=== PATIENT | male | born 1960 | race Caucasian/White ===

== ENCOUNTER 2024-03-20 12:32 | Inpatient (IN) | payer MEDICARE ==
--- NOTE | 2024-03-20 12:59 | ED ---
General Adult HPI - General Chief complaint: Weakness Stated complaint: Weakness Time Seen by Provider: 03/20/24 12:35 Source: patient Mode of arrival: ambulatory Limitations: no limitations - History of Present Illness Initial comments: Dictation was produced using [employer] dictation software. please excuse any grammatical, word or spelling errors. Chief Complaint: 64-year-old male presents to the emergency department with acute on chronic weakness History of Present Illness: Patient 64-year-old male he presents with his friend. He lives with his friend. They apparently are not a romantic couple. Patient over the last 1 to 2 months has been having worsening weakness. Today's weakness was so bad that he was unable to get up off the toilet. He was able to sit down but unable to stand up. Denies any black or bloody stools. Has no pain complaints. Patient does not have any family to help take care of him. He takes anticoagulation medications. He does have a history of hypertension however recently his hypertensive medications were discontinued. Says that patient seems a lot more pale. The ROS documented in this emergency department record has been reviewed and confirmed by me. Those systems with pertinent positive or negative responses have been documented in the HPI. All other systems are other negative and/or noncontributory. - Related Data Home Medications Medication Instructions Recorded Confirmed Apixaban [Eliquis] 5 mg PO BID 03/20/24 03/20/24 Atorvastatin [Lipitor] 40 mg PO DAILY 03/20/24 03/20/24 Folic Acid 1 mg PO DAILY 03/20/24 03/20/24 Sotalol [Betapace] 80 mg PO BID 03/20/24 03/20/24 Tamsulosin [Flomax] 0.4 mg PO HS 03/20/24 03/20/24 dilTIAZem HCL [dilTIAZem HCL 24Hr 180 mg PO BID 03/20/24 03/20/24 ER (Xr)] Allergies Allergy/AdvReac Type Severity Reaction Status Date / Time No Known Allergies Allergy Verified 03/20/24 12:37 Review of Systems ROS Statement: Those systems with pertinent positive or pertinent negative responses have been documented in the HPI. ROS Other: All systems not noted in ROS Statement are negative. Past Medical History Past Medical History: Hypertension History of Any Multi-Drug Resistant Organisms: None Reported Past Surgical History: Tonsillectomy Past Psychological History: No Psychological Hx Reported Smoking Status: Never smoker Past Alcohol Use History: Daily Past Drug Use History: None Reported General Exam - General Exam Comments Initial Comments: PHYSICAL EXAM: General Impression: Alert and oriented x3, not in acute distress no pallor HEENT: Normocephalic atraumatic, extra-ocular movements intact, pupils equal and reactive to light bilaterally, mucous membranes dry. Cardiovascular: Heart regular rate and rhythm Chest: Able to complete full sentences, no retractions, no tachypnea Abdomen: abdomen soft, non-tender, non-distended, no organomegaly Musculoskeletal: Pulses present and equal in all extremities, no peripheral edema Motor: no focal deficits noted Neurological: CN II-XII grossly intact, no focal motor or sensory deficits noted Skin: Intact with no visualized rashes Psych: Normal affect and mood Limitations: no limitations Course Vital Signs 03/20/24 03/20/24 03/20/24 12:33 12:43 13:01 Temperature 97.4 F L Pulse Rate 67 58 L 58 L Respiratory 18 18 18 Rate Blood Pressure 76/52 104/70 102/63 O2 Sat by Pulse 98 96 99 Oximetry 03/20/24 14:00 Temperature Pulse Rate 60 Respiratory 16 Rate Blood Pressure 104/66 O2 Sat by Pulse 97 Oximetry EKG Findings - EKG Comments: EKG Findings:: My EKG interpretation: Ventricular rate 60, unable to determine rhythm.. 160, cures 69, QTc 371 artifact significantly reduced his ability interpret. No [place] prolongation, no QTC prolongation, no ST or T-wave changes noted. Overall, this EKG is nonspecific Medical Decision Making - Medical Decision Making Was pt. sent in by a medical professional or institution (, PA, [facility], urgent care, hospital, or long term...) When possible be specific @ -No Did you speak to anyone other than the patient for history (EMS, parent, family, police, friend...)? What history was obtained from this source @ -See above Did you review nursing and triage notes (agree or disagree)? Why? @ -I reviewed and agree with nursing and triage notes Were old charts reviewed (outside hosp., previous admission, EMS record, old EKG, old radiological studies, urgent care reports/EKG's, long term records)? Report findings @ -No old charts were reviewed Differential Diagnosis (chest pain, altered mental status, abdominal pain women, abdominal pain men, vaginal bleeding, musculoskeletal, weakness, fever, dyspnea, syncope, headache, dizziness, GI bleed, back pain, seizure, CVA, palpatations, mental health)? @ -Differential Weakness: Hypoglycemia, shock, sepsis, hyponatremia, anemia, infection, WA, ETOH, adverse medicine reaction, overdose, stroke, this is not meant to be an all-inclusive list. EKG interpreted by me (3pts min.). @ -See above X-rays interpreted by me (1pt min.). @ -Chest x-ray shows no acute processes CT interpreted by me (1pt min.). @ -None done U/S interpreted by me (1pt. min.). @ -None done What testing was considered but not performed or refused? (CT, X-rays, U/S, labs)? Why? @ -None What meds were considered but not given or refused? Why? @ -None Was smoking cessation discussed for >3mins.? @ -No Were there social determinants of health that impacted care today? How? (Homelessness, low income, unemployed, alcoholism, drug addiction, transportati on, low edu. Level, literacy, decrease access to med. care, skilled nursing, rehab)? @ -No Was there de-escalation of care discussed even if they declined (Discuss DNR or withdrawal of care, Hospice)? DNR status @ -No What co-morbidities impacted this encounter? (DM, HTN, Smoking, COPD, CAD, Cancer, CVA, ARF, Chemo, Hep., AIDS, mental health diagnosis, sleep apnea, morbid obesity)? @ -None Was patient admitted / discharged? Hospital course, mention meds given and route, prescriptions, significant lab abnormalities, going to OR and other pertinent info. @ -64-year-old male presents to the emergency department for chief complaint of generalized weakness. Patient is pale at the bedside. His initial blood pressure was 76/52 done in triage. Blood pressure obtained in the ROM #2 is 104/70. Patient's blood pressure had been monitoring for couple hours parable blood pressure measurements. Evaluation obtained. Hemoglobin 11.6. Coag panel is within acceptable limits. Metabolic panel shows hypokalemia of 3.0. Magnesium Aracely of 1.5. Patient given electrolytes. TSH is elevated at 5.2. Still coughs negative. Patient reevaluated at bedside at 4:25 PM he is resting comfortably playing on his tablet in no acute distress. Patient will be admitted for care. Case discussed with hospitalist for admission. Did you discuss the management of the patient with other professionals (professionals i.e. , PA, [facility], lab, RT, psych nurse, secondary social studies teacher, wire bound box machine helper, teacher, facilities officer, registered nurse hh case manager)? Give summary @ -See above Was critical care preformed (if so, how long)? @ -Yes, 33 minutes for hypotension Undiagnosed new problem with uncertain prognosis? @ -No Drug Therapy requiring intensive monitoring for toxicity (Heparin, Nitro, Insulin, Cardizem)? @ -No Were any procedures done? @ -No Diagnosis/symptom? Acute, or Chronic, or Acute on Chronic? Uncomplicated (without systemic symptoms) or Complicated (systemic symptoms)? @ -Generalized weakness Side effects of treatment? @ -No Exacerbation, Progression, or Severe Exacerbation? @ -No Poses a threat to life or bodily function? How? (Chest pain, USA, WA, pneumonia, PE, COPD, DKA, ARF, appy, cholecystitis, CVA, Diverticulitis, Homicidal, Suicidal, threat to staff... and all critical care pts) @ -yes - Lab Data Result diagrams: 03/20/24 13:02 03/20/24 13:02 Lab Results 03/20/24 03/20/24 03/20/24 Range/Units 13:02 13:02 13:02 WBC 11.9 H (3.8-10.6) k/uL RBC 3.44 L (4.30-5.90) m/uL Hgb 11.6 L (13.0-17.5) gm/dL Hct 34.1 L (39.0-53.0) % MCV 99.3 (80.0-100.0) fL MCH 33.9 (25.0-35.0) pg MCHC 34.1 (31.0-37.0) g/dL RDW 13.5 (11.5-15.5) % Plt Count 286 (150-450) k/uL MPV 8.4 Neutrophils % 81 % Lymphocytes % 13 % Monocytes % 4 % Eosinophils % 1 % Basophils % 0 % Neutrophils # 9.6 H (1.3-7.7) k/uL Lymphocytes # 1.6 (1.0-4.8) k/uL Monocytes # 0.5 (0-1.0) k/uL Eosinophils # 0.1 (0-0.7) k/uL Basophils # 0.0 (0-0.2) k/uL PT 15.3 H (10.0-12.5) sec INR 1.5 H (<1.2) APTT 32.3 H (22.0-30.0) sec Sodium (137-145) mmol/L Potassium (3.5-5.1) mmol/L Chloride (98-107) mmol/L Carbon Dioxide (22-30) mmol/L Anion Gap mmol/L BUN (9-20) mg/dL Creatinine (0.66-1.25) mg/dL Est GFR (CKD-EPI)AfAm (>60 ml/min/1.73 sqM) Est GFR (CKD-EPI)NonAf (>60 ml/min/1.73 sqM) Glucose (74-99) mg/dL Plasma Lactic Acid Christo (0.7-2.0) mmol/L Calcium (8.4-10.2) mg/dL Ionized Calcium David (4.5-5.3) mg/dL Magnesium (1.6-2.3) mg/dL Total Bilirubin (0.2-1.3) mg/dL AST (17-59) U/L ALT (4-49) U/L Alkaline Phosphatase (38-126) U/L Troponin I (0.000-0.034) ng/mL Total Protein (6.3-8.2) g/dL Albumin (3.5-5.0) g/dL TSH (0.465-4.680) mIU/L Stool Occult Blood Negative (Negative) Influenza Type A (PCR) (Not Detectd) Influenza Type B (PCR) (Not Detectd) RSV (PCR) (Not Detectd) SARS-CoV-2 (PCR) (Not Detectd) 03/20/24 03/20/24 03/20/24 Range/Units 13:02 13:02 13:02 WBC (3.8-10.6) k/uL RBC (4.30-5.90) m/uL Hgb (13.0-17.5) gm/dL Hct (39.0-53.0) % MCV (80.0-100.0) fL MCH (25.0-35.0) pg MCHC (31.0-37.0) g/dL RDW (11.5-15.5) % Plt Count (150-450) k/uL MPV Neutrophils % % Lymphocytes % % Monocytes % % Eosinophils % % Basophils % % Neutrophils # (1.3-7.7) k/uL Lymphocytes # (1.0-4.8) k/uL Monocytes # (0-1.0) k/uL Eosinophils # (0-0.7) k/uL Basophils # (0-0.2) k/uL PT (10.0-12.5) sec INR (<1.2) APTT (22.0-30.0) sec Sodium 137 (137-145) mmol/L Potassium 3.0 L (3.5-5.1) mmol/L Chloride 104 (98-107) mmol/L Carbon Dioxide 26 (22-30) mmol/L Anion Gap 7 mmol/L BUN 10 (9-20) mg/dL Creatinine 0.95 (0.66-1.25) mg/dL Est GFR (CKD-EPI)AfAm >90 (>60 ml/min/1.73 sqM) Est GFR (CKD-EPI)NonAf 84 (>60 ml/min/1.73 sqM) Glucose 77 (74-99) mg/dL Plasma Lactic Acid Christo 1.4 (0.7-2.0) mmol/L Calcium 7.2 L (8.4-10.2) mg/dL Ionized Calcium David 4.1 L (4.5-5.3) mg/dL Magnesium 1.5 L (1.6-2.3) mg/dL Total Bilirubin 1.2 (0.2-1.3) mg/dL AST 73 H (17-59) U/L ALT 48 (4-49) U/L Alkaline Phosphatase 90 (38-126) U/L Troponin I <0.012 (0.000-0.034) ng/mL Total Protein 4.2 L (6.3-8.2) g/dL Albumin 2.2 L (3.5-5.0) g/dL TSH 5.200 H (0.465-4.680) mIU/L Stool Occult Blood (Negative) Influenza Type A (PCR) (Not Detectd) Influenza Type B (PCR) (Not Detectd) RSV (PCR) (Not Detectd) SARS-CoV-2 (PCR) (Not Detectd) 03/20/24 Range/Units 13:02 WBC (3.8-10.6) k/uL RBC (4.30-5.90) m/uL Hgb (13.0-17.5) gm/dL Hct (39.0-53.0) % MCV (80.0-100.0) fL MCH (25.0-35.0) pg MCHC (31.0-37.0) g/dL RDW (11.5-15.5) % Plt Count (150-450) k/uL MPV Neutrophils % % Lymphocytes % % Monocytes % % Eosinophils % % Basophils % % Neutrophils # (1.3-7.7) k/uL Lymphocytes # (1.0-4.8) k/uL Monocytes # (0-1.0) k/uL Eosinophils # (0-0.7) k/uL Basophils # (0-0.2) k/uL PT (10.0-12.5) sec INR (<1.2) APTT (22.0-30.0) sec Sodium (137-145) mmol/L Potassium (3.5-5.1) mmol/L Chloride (98-107) mmol/L Carbon Dioxide (22-30) mmol/L Anion Gap mmol/L BUN (9-20) mg/dL Creatinine (0.66-1.25) mg/dL Est GFR (CKD-EPI)AfAm (>60 ml/min/1.73 sqM) Est GFR (CKD-EPI)NonAf (>60 ml/min/1.73 sqM) Glucose (74-99) mg/dL Plasma Lactic Acid Christo (0.7-2.0) mmol/L Calcium (8.4-10.2) mg/dL Ionized Calcium David (4.5-5.3) mg/dL Magnesium (1.6-2.3) mg/dL Total Bilirubin (0.2-1.3) mg/dL AST (17-59) U/L ALT (4-49) U/L Alkaline Phosphatase (38-126) U/L Troponin I (0.000-0.034) ng/mL Total Protein (6.3-8.2) g/dL Albumin (3.5-5.0) g/dL TSH (0.465-4.680) mIU/L Stool Occult Blood (Negative) Influenza Type A (PCR) Not Detected (Not Detectd) Influenza Type B (PCR) Not Detected (Not Detectd) RSV (PCR) Not Detected (Not Detectd) SARS-CoV-2 (PCR) Not Detected (Not Detectd) Disposition Clinical Impression: Generalized weakness Disposition: ADMITTED IP TO THIS [facility] Condition: Fair Referrals: Valeriy Mohamud MD [Primary Care Provider] - 1-2 days Decision Time: 16:26
[2024-03-20] MEDS: SODIUM CHLORIDE 0.9% 1,000 ML BAG IV STA (13:09)
[2024-03-20 13:19] LABS: Basophils % (A) 0 %; Eosinophils # (A) 0.1 k/uL (0-0.7); Eosinophils % (A) 1 %; HCT 34.1 % (39.0-53.0); HGB 11.6 gm/dL (13.0-17.5); Lymphocytes # (A) 1.6 k/uL (1.0-4.8); Lymphocytes % (A) 13 %; MCH 33.9 pg (25.0-35.0); MCHC 34.1 g/dL (31.0-37.0); MCV 99.3 fL (80.0-100.0); Mean Platelet Volume 8.4; Monocytes # (A) 0.5 k/uL (0-1.0); Monocytes % (A) 4 %; Neutrophils # (A) 9.6 k/uL (1.3-7.7); Neutrophils % (A) 81 %; Platelet Count 286 k/uL (150-450); RBC 3.44 m/uL (4.30-5.90); RDW 13.5 % (11.5-15.5); WBC 11.9 k/uL (3.8-10.6)
[2024-03-20 13:20] LABS: Ionized Calcium 4.1 mg/dL (4.5-5.3)
--- NOTE | 2024-03-20 13:25 | XR ---
EXAMINATION TYPE: XR chest 2V DATE OF EXAM: 03/20/2024 1:19 PM COMPARISON: None TECHNIQUE: XR chest 2V Frontal and lateral views of the chest. CLINICAL INDICATION:Male, 64 years old with history of weakness; FINDINGS: Lungs/Pleura: Blunting of the left costophrenic angle. No focal consolidation or pneumothorax. Pulmonary vascularity: Unremarkable. Heart/mediastinum: Cardiomediastinal silhouette is unremarkable. Musculoskeletal: No acute osseous pathology. IMPRESSION: Small left pleural effusion.
[2024-03-20 13:30] LABS: ALT 48 U/L (4-49); AST 73 U/L (17-59); African American GFR (CKD) >90 (>60 ml/min/1.73 sqM); Albumin 2.2 g/dL (3.5-5.0); Alkaline Phosphatase 90 U/L (38-126); Anion Gap 7 mmol/L; Blood Urea Nitrogen 10 mg/dL (9-20); Calcium 7.2 mg/dL (8.4-10.2); Carbon Dioxide 26 mmol/L (22-30); Chloride 104 mmol/L (98-107); Glucose 77 mg/dL (74-99); Magnesium 1.5 mg/dL (1.6-2.3); Non-African American GFR(CKD) 84 (>60 ml/min/1.73 sqM); Sodium 137 mmol/L (137-145); Total Bilirubin 1.2 mg/dL (0.2-1.3); Total Protein 4.2 g/dL (6.3-8.2)
[2024-03-20] MEDS: POTASSIUM CHLORIDE ER 20 MEQ TAB.ER PO STA (13:53)
[2024-03-20 13:59] LABS: INR 1.5 (<1.2); Partial Thromboplastin Time 32.3 sec (22.0-30.0); Prothrombin Time 15.3 sec (10.0-12.5)
[2024-03-20] MEDS: SODIUM CHLORIDE 0.9% 2,000 ML IV STA (14:32)
[2024-03-20] MEDS ORDERED: NALOXONE 0.4 MG/ML 1 ML VIAL IV PRN (16:23)
[2024-03-20] MEDS: MAGNESIUM SULFATE-D5W PMX 1 GM in DEXTROSE/WATER 1 100ML.BAG IVPB SCH (16:33)
[2024-03-20] MEDS: SODIUM CHLORIDE 0.9% 1,000 ML IV SCH (16:38)
[2024-03-20] MEDS ORDERED: LORazepam 0.5 MG TAB PO PRN (17:17)
[2024-03-20] MEDS ORDERED: LORazepam 1 MG TAB PO PRN ×3 (17:17)
--- NOTE | 2024-03-20 17:50 | P.HPIM ---
History of Present Illness H&P Date: 03/20/24 History of Present Illness: Patient is a 64-year-old male with a past medical history of atrial fibrillation, hypertension, BPH, chronic alcohol abuse with complaint of gen eralized weakness. He says this weakness started yesterday while he was on the toilet and was unable to get up. He was brought in by his significant other with whom he lives with. He stated that when he goes on longer walks that his calves start to burn. However he states that there is no pain during this incident. He denies any numbness or tingling. Denies any black or bloody stools. Denies any chest pain or palpitations. States that he drinks alcohol daily that usually consist of 2 glasses of vodka and orange juice. He also noted that he has diet is poor and has lost 50 pounds over the last 7 months. Vitals in the ED were temperature 98.9, pulse rate 54, respiratory rate 16, bloo d pressure 90/58, O2 sat 95 on 2 L nasal cannula. Chest x-ray showed small left pleural effusion. EKG showed ectopic atrial rhythm. Labs: WBC 11.9, Hgb 11.6, MCV 99.3, sodium 137, potassium in ED was 3.0 and was given oral potassium to correct. Magnesium was 1.5 was given IV mag sulfate to correct. BUN 10, Cr 0.95, glucose 77. Total protein 4.2, albumin 2.2. AST 73, ALT 48. PT 15.3, INR 1.5, APTT 32.3. TSH 5.2. Troponin negative. Creatine kinase 256. Stool occult blood negative. He is being admitted for further workup on generalized weakness. Pertinent positives and negatives as discussed above, a complete review of systems was performed and all other systems are negative. Physical Exam: General: nontoxic, no distress, appears at stated age Derm: warm, dry, intact Head: atraumatic, normocephalic, symmetric Eyes: EOMI, no lid lag, anicteric sclera Mouth: no lip lesion, mucus membranes moist Cardiovascular: S1 S2 reg, no murmur, rubs, or gallops Lungs: CTA bilateral, no rhonchi, no rales, no accessory muscle use Abdominal: soft, non-tender to palpataion, no appreciable organomegaly Extremities: no gross muscle atrophy, no contractures, edema present in the forearm bilaterally. 3/5 lower extremity strength on bilateral hip flexion Neuro: Alert, Oriented, CNII-XII grossly intact, gait normal Psych: well appearing, appropriate affect Assessment and Plan: 64-year-old male with a past medical history of A-fib, hypertension, BPH, chronic alcohol abuse presents 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 Active: Generalized weakness rhabdomyolysis, less likely. creatine kinase 256. will continue to monitor Chronic alcohol abuse CIKY protocol, monitor for sedation Elevated TSH Free T4 pending Macrocytic anemia, borderline B12 and folate ordered Protein calorie malnutrition Dietary consult ordered Atrial fibrillation Continue Cardizem 180 mg PO twice daily Eliquis 5 mg p.o. twice daily Sotalol 80 mg p.o. twice daily Lipitor 40 mg p.o. daily Keep K > 4 and Mg > 2 Monitor on telemetry Hypokalemia K 3.0 was given 40 mEq p.o. Follow-up BMP Hypomagnesemia Mg 1.5. Was given magnesium sulfate 100 mls @ 100 mls/hr IVP q1hr Follow-up BMP Chronic: BPH Continue Flomax 0.4 mg PO at bedtime Hypertension Hold hypertensive meds due to low blood pressure reading F: NS 75 cc/hr E: Replete as needed N: Heart healthy diet. Diet nutrition consult A: Unable to ambulate. PT/OT consulted. DVT ppx: Eliquis Code status: Full Anticipated discharge place: Pending clinical course Anticipated discharge time: Pending clinical course I have seen and evaluated the patient today. Discussed with the resident and agree with the residents subjective and objective as documented in the shae berry's note. The assessment and plan was discussed and outlined as below. Patient reports generalized weakness progressively getting worse over the past 2 days. Now unable to stand up without assistance. Lives with his "lady friend". Reports significant amount of weight loss associated with poor appetite. Drinks 2 glasses of vodka daily. Non smoker. Brother and sister of thyroid and breast CA. Generalized weakness: PT and OT consulted. Obtain B12 and Folate. Fall precautions. Severe protein calorie malnutrition: Dietitian consult. Add ensure TID to meals. Alcohol abuse: CIWA protocol with Ativan PO PRN. Elevated TSH: Obtain Ft4. Hypokalemia: Replace and re-check. Hypomagnesemia: Replace and re-check. Leukocytosis: Unknown etiology. Mildly elevated. Repeat CBC tomorrow. Normocytic anemia: Advised of routine CA screening especially C-scope which patient declines. HypoCa: Pseudo when factoring in albumin of 2.2. Transaminitis likely due to EtOH abuse. Supratherapeutic INR: Obtain Liver US. Eliquis for DVT prophylaxis. FULL CODE. Past Medical History Past Medical History: Hypertension History of Any Multi-Drug Resistant Organisms: None Reported Past Surgical History: Tonsillectomy Past Psychological History: No Psychological Hx Reported Smoking Status: Never smoker Past Alcohol Use History: Daily Past Drug Use History: None Reported Medications and Allergies Home Medications Medication Instructions Recorded Confirmed Type Apixaban [Eliquis] 5 mg PO BID 03/20/24 03/20/24 History Atorvastatin [Lipitor] 40 mg PO DAILY 03/20/24 03/20/24 History Folic Acid 1 mg PO DAILY 03/20/24 03/20/24 History Sotalol [Betapace] 80 mg PO BID 03/20/24 03/20/24 History Tamsulosin [Flomax] 0.4 mg PO HS 03/20/24 03/20/24 History dilTIAZem HCL [dilTIAZem HCL 24Hr 180 mg PO BID 03/20/24 03/20/24 History ER (Xr)] Allergies Allergy/AdvReac Type Severity Reaction Status Date / Time No Known Allergies Allergy Verified 03/20/24 12:37 Physical Exam Vitals: Vital Signs Temp Pulse Resp BP Pulse Ox 03/20/24 14:00 60 16 104/66 97 03/20/24 13:01 58 L 18 102/63 99 03/20/24 12:43 58 L 18 104/70 96 03/20/24 12:33 97.4 F L 67 18 76/52 98 Intake and Output 03/20/24 03/20/24 03/20/24 06:59 14:59 22:59 Other: Weight 60.781 kg Results CBC & Chem 7: 03/20/24 13:02 03/20/24 13:02 Labs: Abnormal Lab Results - Last 24 Hours (Table) 03/20/24 03/20/24 03/20/24 Range/Units 13:02 13:02 13:02 WBC 11.9 H (3.8-10.6) k/uL RBC 3.44 L (4.30-5.90) m/uL Hgb 11.6 L (13.0-17.5) gm/dL Hct 34.1 L (39.0-53.0) % Neutrophils # 9.6 H (1.3-7.7) k/uL PT 15.3 H (10.0-12.5) sec INR 1.5 H (<1.2) APTT 32.3 H (22.0-30.0) sec Potassium 3.0 L (3.5-5.1) mmol/L Calcium 7.2 L (8.4-10.2) mg/dL Ionized Calcium David 4.1 L (4.5-5.3) mg/dL Magnesium 1.5 L (1.6-2.3) mg/dL AST 73 H (17-59) U/L Total Protein 4.2 L (6.3-8.2) g/dL Albumin 2.2 L (3.5-5.0) g/dL TSH 5.200 H (0.465-4.680) mIU/L
[2024-03-20 17:59] LABS: T4, Free (Free Thyroxine) 2.16 ng/dL (0.78-2.19)
[2024-03-20] MEDS: SOTALOL 80 MG TAB PO SCH (20:12)
[2024-03-20] MEDS: TAMSULOSIN 0.4 MG CAP.ER.24H PO SCH (20:12)
[2024-03-20] MEDS: DILTIAZEM CD 180 MG CAP.ER.24H PO SCH (20:12)
[2024-03-20] MEDS: APIXABAN 5 MG TAB PO SCH (20:13)
[2024-03-20] MEDS ORDERED: APIXABAN 5 MG TAB PO SCH (21:00)
[2024-03-21 03:09] LABS: Amorphous Sediment,Urine Rare /hpf; Appearance,Urine Clear (Clear); Bacteria,Urine Rare /hpf; Bilirubin,Urine Negative (Negative); Blood,Urine Negative (Negative); Color,Urine Yellow; Glucose,Urine (UA) Negative (Negative); Hyaline Casts,Urine 158 /lpf (0-2); Ketones,Urine Trace (Negative); Leukocyte Esterase,Urine Negative (Negative); Mucus,Urine Rare /hpf; Nitrite,Urine Negative (Negative); PH, Urine 5.5 (5.0-8.0); Protein,Urine Trace (Negative); Specific Gravity,Urine 1.013 (1.001-1.035); Urobilinogen,Urine <2.0 mg/dL (<2.0); WBC,Urine 38 /hpf (0-5)
--- NOTE | 2024-03-21 08:03 | US ---
EXAMINATION TYPE: US liver DATE OF EXAM: 03/20/2024 COMPARISON: NONE CLINICAL INDICATION: Male, 64 years old with history of transaminitis; transaminitis TECHNIQUE: Multiple sonographic images of the right upper quadrant are obtained. Limited due to body habitus, exam done intercostally FINDINGS: EXAM MEASUREMENTS: Liver Length: 11.8 cm Gallbladder Wall: 0.2 cm CBD: 0.7 cm Right Kidney: 8.4 x 4.8 x 5.4 cm CLUB FORMER NOTES: Pancreas: parts seen appear wnl Liver: heterogeneous Gallbladder: wnl Evidence for sonographic Quezada's sign: No CBD: wnl Right Kidney: wnl IMPRESSION: Probable underlying hepatic steatosis.
[2024-03-21] MEDS: ATORVASTATIN 40 MG TAB PO SCH (08:05)
[2024-03-21] MEDS: THIAMINE 100 MG TAB PO SCH (08:05)
[2024-03-21] MEDS: FOLIC ACID 1 MG TAB PO SCH (08:05)
[2024-03-21] MEDS: MULTIVITAMINS, THERA 1 EACH TAB PO SCH (08:05)
[2024-03-21 08:24] LABS: Basophils # (A) 0.02 X 10*3/uL (0.00-0.10); Basophils % (A) 0.2 %; Eosinophils # (A) 0.02 X 10*3/uL (0.04-0.35); Eosinophils % (A) 0.2 %; HCT 30.8 % (39.6-50.0); HGB 10.6 g/dL (13.0-17.0); Lymphocytes # (A) 1.21 X 10*3/uL (0.90-5.00); MCHC 34.4 g/dL (32.0-37.0); MCV 98.7 FL (80.0-97.0); Monocytes # (A) 0.55 X 10*3/uL (0.20-1.00); Monocytes % (A) 5.9 %; NRBC Per 100 WBC 0 X 10*3/uL (0.00-0.01); Neutrophils # (A) 7.47 X 10*3/uL (1.80-7.70); Neutrophils % (A) 80.3 %; Platelet Count 217 X 10*3/uL (140-440); RBC 3.12 X 10*6/uL (4.40-5.60); RDW 13.6 % (11.5-14.5); WBC 9.31 X 10*3/uL (4.50-10.00)
[2024-03-21 08:42] LABS: ALT 41 U/L (10-49); AST 52 U/L (14-35); Albumin 2.1 g/dL (3.8-4.9); Albumin/Globulin Ratio 1.62 Ratio (1.60-3.17); Alkaline Phosphatase 81 U/L (41-126); Blood Urea Nitrogen 11.3 mg/dL (9.0-27.0); Calcium 6.9 mg/dL (8.7-10.3); Carbon Dioxide 25.1 mmol/L (21.6-31.8); Chloride 104 mmol/L (96-109); Globulin 1.3 g/dL (1.6-3.3); Glucose 78 mg/dL (70-110); Magnesium 1.9 mg/dL (1.5-2.4); Potassium 3.3 mmol/L (3.5-5.5); Sodium 141 mmol/L (135-145); Total Bilirubin 0.6 mg/dL (0.3-1.2); Total Protein 3.4 g/dL (6.2-8.2)
[2024-03-21] MEDS: POTASSIUM CHLORIDE ER 20 MEQ TAB.ER PO STA (09:38)
[2024-03-21 10:40] VITALS: BMI 19.2
--- NOTE | 2024-03-21 11:13 | P.PN ---
Subjective Progress Note Date: 03/21/24 Hospital course Patient is a 64-year-old male with a past medical history of atrial fibrillation, hypertension, BPH, chronic alcohol abuse with complaint of generalized weakness. He says this weakness started yesterday while he was on the toilet and was unable to get up. He was brought in by his significant other with whom he lives with. He stated that when he goes on longer walks that his calves start to burn. However he states that there is no pain during this incident. He denies any numbness or tingling. Denies any black or bloody stools. Denies any chest pain or palpitations. States that he drinks alcohol daily that usually consist of 2 glasses of vodka and orange juice. He also noted that he has diet is poor and has lost 50 pounds over the last 7 months. Vitals in the ED were temperature 98.9, pulse rate 54, respiratory rate 16, blood pressure 90/58, O2 sat 95 on 2 L nasal cannula. Chest x-ray showed small left pleural effusion. EKG showed ectopic atrial rhythm. Labs: WBC 11.9, Hgb 11.6, MCV 99.3, sodium 137, potassium in ED was 3.0 and was given oral potassium to correct. Magnesium was 1.5 was given IV mag sulfate to correct. BUN 10, Cr 0.95, glucose 77. Total protein 4.2, albumin 2.2. AST 73, ALT 48. PT 15.3, INR 1.5, APTT 32.3. TSH 5.2. Troponin negative. Creatine kinase 256. Stool occult blood negative. He is being admitted for further workup on generalized weakness. Subjective: 03/21/2024: Patient seen and examined at bedside. Patient stated he had 5 bowel movements last night consisted of diarrhea. He stated his weakness has improved. Liver ultrasound showed probable hepatic steatosis. Pertinent positives and negatives as discussed above, a complete review of systems was performed and all other systems are negative. Vitals: Signs Reviewed Physical Exam: General: nontoxic, no distress, appears at stated age Derm: warm, dry, intact Head: atraumatic, normocephalic, symmetric Eyes: EOMI, no lid lag, anicteric sclera Mouth: no lip lesion, mucus membranes moist Cardiovascular: S1 S2 reg, no murmur, rubs, or gallops Lungs: CTA bilateral, no rhonchi, no rales, no accessory muscle use Abdominal: soft, non-tender to palpataion, no appreciable organomegaly Extremities: no gross muscle atrophy, no edema, no contractures, 3/5 lower extremity strength on bilateral hip flexion Neuro: Alert, Oriented, CNII-XII grossly intact, gait normal Psych: well appearing, appropriate affect Data Received Today: Pertinent Labs: WBC 9.31, Hgb 10.6, MCV 98.7, potassium 3.352 total protein 3.4, albumin 2.1, globulin 1.3, UA negative Imaging: Liver ultrasound showed probable hepatic steatosis Assessment and Plan: 64-year-old male with a past medical history of A-fib, 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 Active: Generalized weakness rhabdomyolysis, less likely. creatine kinase 256. will continue to monitor Fall precautions Will be seen by PT today Chronic alcohol abuse Transaminitis [facility] protocol, monitor for sedation Transaminitis likely due to EtOH abuse Elevated TSH Free T4 2.16 Normocytic anemia B12 3214, folate 40 Protein calorie malnutrition Seen by dietitian this morning Ensure 3 times daily with meals 5 episodes of diarrhea last night, C. difficile ordered. Atrial fibrillation Continue Cardizem 180 mg PO twice daily Eliquis 5 mg p.o. twice daily Sotalol 80 mg p.o. twice daily Lipitor 40 mg p.o. daily Keep K > 4 and Mg > 2 Monitor on telemetry Hypokalemia K 3.3 was given 40 mEq p.o. Follow-up BMP Supratherapeutic INR Liver ultrasound showed possible hepatic steatosis Chronic: BPH Continue Flomax 0.4 mg PO at bedtime Hypertension Hold hypertensive meds due to low blood pressure reading Resolved: Hypomagnesemia Follow-up BMP F: NS 75 cc/hr E: Replete as needed N: Heart healthy diet. Diet nutrition consult A: Unable to ambulate, fall precautions. PT/OT consulted. Will be seen later today. DVT ppx: Eliquis Code status: Full Anticipated discharge place: Pending clinical course Anticipated discharge time: Pending clinical course I have seen and evaluated the patient today. Discussed with the resident and agree with the residents subjective and objective as documented in the resident's note. The assessment and plan was discussed and outlined as below. Patient reports no complaints today. PT and OT recommends SNF. Case management aware. Generalized weakness: PT and OT consulted. Fall precautions. Case management on board. Severe protein calorie malnutrition: Dietitian consult. Add ensure TID to meals. Alcohol abuse: CIWA protocol with Ativan PO PRN. Subclinical hypothyroidism: Repeat TSH/FT4 in 6 weeks. Hypokalemia: Replace and re-check. Normocytic anemia: Advised of routine CA screening especially C-scope which patient declines. HypoCa: Pseudo when factoring in albumin of 2.2. Transaminitis likely due to EtOH abuse. Supratherapeutic INR: Obtain Liver US. Resolved: HypoMag, Leukocytosis Eliquis for DVT prophylaxis. FULL CODE. Objective - Vital Signs Vital signs: Vital Signs Temp 97.5 F L 03/21/24 07:24 Pulse 57 L 03/21/24 07:24 Resp 18 03/21/24 07:24 BP 100/68 03/21/24 07:24 Pulse Ox 92 L 03/21/24 07:24 FiO2 Intake & Output 03/20/24 03/21/24 03/21/24 18:59 06:59 18:59 Output Total 150 Balance -150 Weight 60.781 kg 60.781 kg Output: Urine 150 Other: # Voids 1 # Bowel Movements 2 - Labs CBC & Chem 7: 03/21/24 06:03 03/21/24 06:01 Labs: Abnormal Lab Results - Last 24 Hours (Table) 03/20/24 03/20/24 03/20/24 Range/Units 13:02 13:02 13:02 WBC 11.9 H (3.8-10.6) k/uL RBC 3.44 L (4.30-5.90) m/uL Hgb 11.6 L (13.0-17.5) gm/dL Hct 34.1 L (39.0-53.0) % MCV (80.0-97.0) FL MCH (27.0-32.0) pg Neutrophils # 9.6 H (1.3-7.7) k/uL Eosinophils # (0.04-0.35) X 10*3/uL PT 15.3 H (10.0-12.5) sec INR 1.5 H (<1.2) APTT 32.3 H (22.0-30.0) sec Potassium 3.0 L (3.5-5.1) mmol/L BUN/Creatinine Ratio (12.00-20.00) Ratio Calcium 7.2 L (8.4-10.2) mg/dL Ionized Calcium David 4.1 L (4.5-5.3) mg/dL Magnesium 1.5 L (1.6-2.3) mg/dL AST 73 H (17-59) U/L Creatine Kinase (55-170) U/L Total Protein 4.2 L (6.3-8.2) g/dL Albumin 2.2 L (3.5-5.0) g/dL Globulin (1.6-3.3) g/dL Vitamin B12 (200.0-944.0) pg/mL Folate (4.40-31.00) ng/mL TSH 5.200 H (0.465-4.680) mIU/L Urine Protein (Negative) Urine Ketones (Negative) Urine WBC (0-5) /hpf Amorphous Sediment (None) /hpf Urine Bacteria (None) /hpf Hyaline Casts (0-2) /lpf Urine Mucus (None) /hpf 03/20/24 03/20/24 03/21/24 Range/Units 13:10 13:10 01:20 WBC (3.8-10.6) k/uL RBC (4.30-5.90) m/uL Hgb (13.0-17.5) gm/dL Hct (39.0-53.0) % MCV (80.0-97.0) FL MCH (27.0-32.0) pg Neutrophils # (1.3-7.7) k/uL Eosinophils # (0.04-0.35) X 10*3/uL PT (10.0-12.5) sec INR (<1.2) APTT (22.0-30.0) sec Potassium (3.5-5.1) mmol/L BUN/Creatinine Ratio (12.00-20.00) Ratio Calcium (8.4-10.2) mg/dL Ionized Calcium David (4.5-5.3) mg/dL Magnesium (1.6-2.3) mg/dL AST (17-59) U/L Creatine Kinase 256 H (55-170) U/L Total Protein (6.3-8.2) g/dL Albumin (3.5-5.0) g/dL Globulin (1.6-3.3) g/dL Vitamin B12 3214.0 H (200.0-944.0) pg/mL Folate 40.00 H (4.40-31.00) ng/mL TSH (0.465-4.680) mIU/L Urine Protein Trace H (Negative) Urine Ketones Trace H (Negative) Urine WBC 38 H (0-5) /hpf Amorphous Sediment Rare H (None) /hpf Urine Bacteria Rare H (None) /hpf Hyaline Casts 158 H (0-2) /lpf Urine Mucus Rare H (None) /hpf 03/21/24 03/21/24 Range/Units 06:01 06:03 WBC (3.8-10.6) k/uL RBC 3.12 L (4.30-5.90) m/uL Hgb 10.6 L (13.0-17.5) gm/dL Hct 30.8 L (39.0-53.0) % MCV 98.7 H (80.0-97.0) FL MCH 34.0 H (27.0-32.0) pg Neutrophils # (1.3-7.7) k/uL Eosinophils # 0.02 L (0.04-0.35) X 10*3/uL PT (10.0-12.5) sec INR (<1.2) APTT (22.0-30.0) sec Potassium 3.3 L (3.5-5.1) mmol/L BUN/Creatinine Ratio 11.30 L (12.00-20.00) Ratio Calcium 6.9 L (8.4-10.2) mg/dL Ionized Calcium David (4.5-5.3) mg/dL Magnesium (1.6-2.3) mg/dL AST 52 H (17-59) U/L Creatine Kinase (55-170) U/L Total Protein 3.4 L (6.3-8.2) g/dL Albumin 2.1 L (3.5-5.0) g/dL Globulin 1.3 L (1.6-3.3) g/dL Vitamin B12 (200.0-944.0) pg/mL Folate (4.40-31.00) ng/mL TSH (0.465-4.680) mIU/L Urine Protein (Negative) Urine Ketones (Negative) Urine WBC (0-5) /hpf Amorphous Sediment (None) /hpf Urine Bacteria (None) /hpf Hyaline Casts (0-2) /lpf Urine Mucus (None) /hpf
[2024-03-22] MEDS ORDERED: ZINC OXIDE PASTE (Z-GUARD) 1 APPLIC TOPICAL PRN (05:18)
[2024-03-22 07:55] LABS: Basophils % (A) 0 %; Eosinophils % (A) 0 %; HGB 11.2 gm/dL (13.0-17.5); Lymphocytes # (A) 1.2 k/uL (1.0-4.8); Lymphocytes % (A) 19 %; MCV 103.2 fL (80.0-100.0); Macrocytosis Slight; Mean Platelet Volume 8.4; Monocytes # (A) 0.4 k/uL (0-1.0); Monocytes % (A) 6 %; Neutrophils # (A) 4.6 k/uL (1.3-7.7); Neutrophils % (A) 73 %; Platelet Count 243 k/uL (150-450); RBC 3.29 m/uL (4.30-5.90); WBC 6.3 k/uL (3.8-10.6)
[2024-03-22 08:06] LABS: African American GFR (CKD) >90 (>60 ml/min/1.73 sqM); Anion Gap 5 mmol/L; Blood Urea Nitrogen 14 mg/dL (9-20); Calcium 7.1 mg/dL (8.4-10.2); Carbon Dioxide 23 mmol/L (22-30); Chloride 109 mmol/L (98-107); Glucose 78 mg/dL (74-99); Non-African American GFR(CKD) >90 (>60 ml/min/1.73 sqM); Potassium 3.4 mmol/L (3.5-5.1); Sodium 137 mmol/L (137-145)
[2024-03-22] MEDS: POTASSIUM CHLORIDE ER 20 MEQ TAB.ER PO STA (09:07)
--- NOTE | 2024-03-22 11:03 | P.PN ---
Subjective Progress Note Date: 03/22/24 Hospital course Patient is a 64-year-old male with a past medical history of atrial fibrillation, hypertension, BPH, chronic alcohol abuse with complaint of generalized weakness. He says this weakness started yesterday while he was on the toilet and was unable to get up. He was brought in by his significant other with whom he lives with. He stated that when he goes on longer walks that his calves start to burn. However he states that there is no pain during this incident. He denies any numbness or tingling. Denies any black or bloody stools. Denies any chest pain or palpitations. States that he drinks alcohol daily that usually consist of 2 glasses of vodka and orange juice. He also noted that he has diet is poor and has lost 50 pounds over the last 7 months. Vitals in the ED were temperature 98.9, pulse rate 54, respiratory rate 16, blood pressure 90/58, O2 sat 95 on 2 L nasal cannula. Chest x-ray showed small left pleural effusion. EKG showed ectopic atrial rhythm. Labs: WBC 11.9, Hgb 11.6, MCV 99.3, sodium 137, potassium in ED was 3.0 and was given oral potassium to correct. Magnesium was 1.5 was given IV mag sulfate to correct. BUN 10, Cr 0.95, glucose 77. Total protein 4.2, albumin 2.2. AST 73, ALT 48. PT 15.3, INR 1.5, APTT 32.3. TSH 5.2. Troponin negative. Creatine kinase 256. Stool occult blood negative. He is being admitted for further workup on generalized weakness. Subjective: 03/21/2024: Patient seen and examined at bedside. Patient stated he had 5 bowel movements last night consisted of diarrhea. He stated his weakness has improved. Liver ultrasound showed probable hepatic steatosis. 03/22/2024: Patient seen and examined at bedside. No acute events overnight. Pending authorization at subacute rehab. Pertinent positives and negatives as discussed above, a complete review of systems was performed and all other systems are negative. Vitals: Signs Reviewed Physical Exam: General: nontoxic, no distress, appears at stated age Derm: warm, dry, intact Head: atraumatic, normocephalic, symmetric Eyes: EOMI, no lid lag, anicteric sclera Mouth: no lip lesion, mucus membranes moist Cardiovascular: S1 S2 reg, no murmur, rubs, or gallops Lungs: CTA bilateral, no rhonchi, no rales, no accessory muscle use Abdominal: soft, non-tender to palpataion, no appreciable organomegaly Extremities: no gross muscle atrophy, no edema, no contractures, 3/5 lower extremity strength on bilateral hip flexion Neuro: Alert, Oriented, CNII-XII grossly intact, gait normal Psych: well appearing, appropriate affect Data Received Today: Pertinent Labs: WBC 6.3, Hgb 11.2, potassium 3.4 Imaging: No new imaging Assessment and Plan: 64-year-old male with a past medical history of A-fib, hypertension, BPH, chronic alcohol abuse presents 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 Active: Generalized weakness rhabdomyolysis, less likely. creatine kinase 256. will continue to monitor Fall precautions Will be seen by PT today Chronic alcohol abuse Transaminitis [facility] protocol, monitor for sedation Transaminitis likely due to EtOH abuse Elevated TSH Free T4 2.16 Normocytic anemia B12 3214, folate 40 Protein calorie malnutrition Seen by dietitian this morning Ensure 3 times daily with meals 5 episodes of diarrhea last night, C. difficile ordered. Atrial fibrillation Continue Cardizem 180 mg PO twice daily Eliquis 5 mg p.o. twice daily Sotalol 80 mg p.o. twice daily Lipitor 40 mg p.o. daily Keep K > 4 and Mg > 2 Monitor on telemetry Hypokalemia K 3.4 was given 20 mEq p.o. Follow-up BMP Supratherapeutic INR Liver ultrasound showed possible hepatic steatosis Chronic: BPH Continue Flomax 0.4 mg PO at bedtime Hypertension Hold hypertensive meds due to low blood pressure reading Resolved: Hypomagnesemia Follow-up BMP F: NS 75 cc/hr E: Replete as needed N: Heart healthy diet. Diet nutrition consult A: Unable to ambulate, fall precautions. PT/OT consulted. Will be seen later today. DVT ppx: Eliquis Code status: Full Anticipated discharge place: Pending clinical course Anticipated discharge time: Pending clinical course I have seen and evaluated the patient today. Discussed with the resident and agree with the residents subjective and objective as documented in the resident's note. The assessment and plan was discussed and outlined as below. Patient reports no complaints today. PT and OT recommends SNF. Case management aware. Generalized weakness: PT and OT consulted. Fall precautions. Case management on board. Severe protein calorie malnutrition: Dietitian consult. Add ensure TID to meals. Alcohol abuse: CIWA protocol with Ativan PO PRN. Subclinical hypothyroidism: Repeat TSH/FT4 in 6 weeks. Hypokalemia: Replace and re-check. Normocytic anemia: Advised of routine CA screening especially C-scope which patient declines. HypoCa: Pseudo when factoring in albumin of 2.2. Transaminitis likely due to EtOH abuse. Supratherapeutic INR: Obtain Liver US. Resolved: HypoMag, Leukocytosis Eliquis for DVT prophylaxis. FULL CODE. Objective - Vital Signs Vital signs: Vital Signs Temp 97.6 F 03/22/24 07:23 Pulse 93 03/22/24 07:23 Resp 16 03/22/24 07:23 BP 113/80 03/22/24 07:23 Pulse Ox 96 03/22/24 07:23 FiO2 Intake & Output 03/21/24 03/22/24 03/22/24 18:59 06:59 18:59 Weight 60.781 kg Other: # Voids 2 2 # Bowel Movements 3 - Labs CBC & Chem 7: 03/22/24 07:04 03/22/24 07:04 Labs: Abnormal Lab Results - Last 24 Hours (Table) 03/22/24 03/22/24 Range/Units 07:04 07:04 RBC 3.29 L (4.30-5.90) m/uL Hgb 11.2 L (13.0-17.5) gm/dL Hct 34.0 L (39.0-53.0) % MCV 103.2 H (80.0-100.0) fL Potassium 3.4 L (3.5-5.1) mmol/L Chloride 109 H (98-107) mmol/L Calcium 7.1 L (8.4-10.2) mg/dL
--- NOTE | 2024-03-23 08:37 | US ---
EXAMINATION TYPE: US venous doppler duplex UE RT DATE OF EXAM: 03/23/2024 COMPARISON: NONE CLINICAL INDICATION: Male, 64 years old with history of edema; right arm edema SIDE PERFORMED: Right Deep venous system of the right upper extremity is patent and compressible with augmentable flow and normal waveforms. IMPRESSION: No evidence of right upper extremity DVT.
[2024-03-23 10:07] LABS: HCT 29.2 % (39.6-50.0); HGB 9.7 g/dL (13.0-17.0); MCH 33.1 pg (27.0-32.0); MCHC 33.2 g/dL (32.0-37.0); MCV 99.7 FL (80.0-97.0); Mean Platelet Volume 10.7 FL (9.5-12.2); NRBC Per 100 WBC 0 X 10*3/uL (0.00-0.01); Platelet Count 211 X 10*3/uL (140-440); RBC 2.93 X 10*6/uL (4.40-5.60); RDW 13.8 % (11.5-14.5); WBC 7.58 X 10*3/uL (4.50-10.00)
[2024-03-23 10:37] LABS: BUN/Creat Ratio 15.88 Ratio (12.00-20.00); Blood Urea Nitrogen 12.7 mg/dL (9.0-27.0); Calcium 6.9 mg/dL (8.7-10.3); Carbon Dioxide 24.1 mmol/L (21.6-31.8); Chloride 110 mmol/L (96-109); Glucose 87 mg/dL (70-110); Magnesium 1.7 mg/dL (1.5-2.4); Potassium 3.6 mmol/L (3.5-5.5); Sodium 141 mmol/L (135-145)
--- NOTE | 2024-03-23 13:00 | P.PN ---
Subjective Progress Note Date: 03/23/24 64 year old M with PMH of AFib, HTN, BPH, chronic alcohol abuse presents to the ED for weakness and inability to do his ADL and IADLs. In the ED he underwent extensive evaluation. BP 76.52, HR 67, T 97.4F, RR 18, 98% on RA. CBC, Coag panel, CMP significant for WBC 11.9, RBC 3.44, Hg 11.6, Hct 34.1, PT 15.3, INR 1.5, APTT 32.3, K 3, Ca 7.2, AST 73, alb 2.2. CPK 256. Mag 1.5. Troponin < 0.012. EKG ectopic atrial rhythm. CXR small left pleural effusion. He was admitted for further workup and management. Symptoms thought to be related to chronic alcohol abuse and poor oral intake. Electrolytes were replaced appropriately. His leukocytosis resolved. B12 3214 and Folate 40. TSH 5.2, FT4 2.16. UA negative for LE or nitrite. Liver US showed hepatic steatosis. Venous duplex negative for DVT. PT and OT evaluated the patient and recommended SNF. He is currently pending bed availability. 03/23 Patient was seen and examined. No complaints. CBC and BMP significant for RBC 2.93, Hg 9.7, Hct 29.2, MCV 99.7, Cl 110, Ca 6.9. General: non toxic, no distress, appears at stated age Derm: warm, dry Head: atraumatic, normocephalic, symmetric Eyes: EOMI, no lid lag, anicteric sclera Mouth: no lip lesion, mucus membranes moist Cardiovascular: good distal perfusion in all 4 extremities Lungs: breathing comfortably Ext: no gross muscle atrophy, no edema, no contractures Neuro: no focal neuro deficits Psych: Alert, oriented, appropriate affect Based on my assessment of this patient, this patient meets a moderate complexity level of care. Generalized weakness: PT and OT consulted. Fall precautions. Case management on board. Severe protein calorie malnutrition: Dietitian consult. Add ensure TID to meals. Alcohol abuse: CIWA protocol with Ativan PO PRN. Subclinical hypothyroidism: Repeat TSH/FT4 in 6 weeks. Hypokalemia: Replace and re-check. Normocytic anemia: Advised of routine CA screening especially C-scope which patient declines. HypoCa: Pseudo when factoring in albumin of 2.2. Transaminitis likely due to EtOH abuse. Supratherapeutic INR: Obtain Liver US. Resolved: HypoMag, Leukocytosis CODE STATUS: FULL CODE DVT Prophylaxis: Eliquis GI Prophylaxis: Designated medical POA if patient is not able to make medical decisions for themselves: Objective - Vital Signs Vital signs: Vital Signs Temp 97.9 F 03/23/24 07:35 Pulse 71 03/23/24 09:26 Resp 16 03/23/24 07:35 BP 116/74 03/23/24 09:26 Pulse Ox 97 03/23/24 09:26 FiO2 Intake & Output 03/22/24 03/23/24 03/23/24 18:59 06:59 18:59 Intake Total 900 Balance 900 Intake: IV 900 Sodium Chloride 0.9% 1, 900 000 ml @ 75 mls/hr IV . [id number] [facility] Rx#:[id number] Other: # Voids 1 2 # Bowel Movements 1 - Labs CBC & Chem 7: 03/23/24 04:25 03/23/24 04:25 Labs: Abnormal Lab Results - Last 24 Hours (Table) 03/23/24 03/23/24 Range/Units 04:25 04:25 RBC 2.93 L (4.40-5.60) X 10*6/uL Hgb 9.7 L (13.0-17.0) g/dL Hct 29.2 L (39.6-50.0) % MCV 99.7 H (80.0-97.0) FL MCH 33.1 H (27.0-32.0) pg Chloride 110 H (96-109) mmol/L Calcium 6.9 L (8.7-10.3) mg/dL
[2024-03-24 08:12] VITALS: TEMP 97.7
--- NOTE | 2024-03-24 11:25 | CDI ---
Documentation Clarification Form Date: 03/24/2024 10:57:00 AM From: Terra Jean RN CCDS Phone: [phone] Admit Date: 03/20/2024 06:35:00 PM Patient Name: Doyle Haider Visit Number: [id number] Discharge Date: ATTENTION: The Clinical Documentation Specialists (CDI) and [facility] Coding Staff appreciate your assistance in clarifying documentation. Please respond to the clarification below the line at the bottom and electronically sign. The CDI & [facility] Coding staff will review the response and follow-up if needed. Please note: Queries are made part of the Legal Health Record. If you have any questions, please contact the author of this message via ITS. Doctor/Provider: Norma Brewer The patients principal diagnosis the diagnosis that was chiefly responsible for the admission - has not been clearly identified and clarification is requested. The patient presented with the following Generalized weakness, Severe protein calorie malnutrition, Subclinical hypothyroidism History/Risk factors: 64-year-old male presents to the ED 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 Was unable to get up from the toilet. When he goes on longer walks that his calves start to burn. Also noted he has a poor diet and lost 50 pounds over the last seven months. Medical history: chronic alcohol abuse, Atrial fibrillation and hypertension. 03/20, HP. Clinical Indicators: Lab findings, 03/20: Wbc 11.9, Neutrophils 9.6, K 3.0, Calcium 7.2 Ionized Calcium sly 4.1, Magnesium 1.5 AST 73, Cr kinase 256, Total protein 4.2, albumin 2.2 Vitamin B12 3214.0, Folate 40.0, TSH 5.200, Radiology findings: 03/20 CXR: Small left pleural effusion. 03/21 Probable underlying hepatic steatosis. Vital Signs: 03/20: B/P 76/52, HR 67, Temp 97.4 F Oral, RR 18, SpO2 98% ra Treatment: 03/20 0.9ns 2L Iv fluids x 1, 03/20 0.9ns 1L IV x 1; 03/20 Magnesium Sulfate IVPB x 2 bags, 03/20 03/20 0.9NS IV fluids; 03/20 Eliquis po bid, 03/20 Cardizem po bid, 03/21 Kdur po x 1; Vitamin B1 po daily, 03/22 Kdur 20 po x 1. In your professional opinion, can you please clarify which diagnosis, after study, was the reason chiefly responsible for the admission? [x ] Weakness related to __electrolyte abnormalities [ ] Other, please specify [ ] Unable to determine (Template Last Revised: October 2020) MTDD
--- NOTE | 2024-03-24 11:41 | P.PN ---
Subjective Progress Note Date: 03/24/24 Principal diagnosis: 64 year old M with PMH of AFib, HTN, BPH, chronic alcohol abuse presents to the ED for weakness and inability to do his ADL and IADLs. In the ED he underwent e xtensive evaluation. BP 76.52, HR 67, T 97.4F, RR 18, 98% on RA. CBC, Coag panel, CMP significant for WBC 11.9, RBC 3.44, Hg 11.6, Hct 34.1, PT 15.3, INR 1.5, APTT 32.3, K 3, Ca 7.2, AST 73, alb 2.2. CPK 256. Mag 1.5. Troponin < 0.012. EKG ectopic atrial rhythm. CXR small left pleural effusion. He was admitted for further workup and management. Symptoms thought to be related to chronic alcohol abuse and poor oral intake. Electrolytes were replaced appropriately. His leukocytosis resolved. B12 3214 and Folate 40. TSH 5.2, FT4 2.16. UA negative for LE or nitrite. Liver US showed hepatic steatosis. Venous duplex negative for DVT. PT and OT evaluated the patient and recommended SNF. He is currently pending bed availability. 03/23 Patient was seen and examined. No complaints. CBC and BMP significant for RBC 2.93, Hg 9.7, Hct 29.2, MCV 99.7, Cl 110, Ca 6.9. 03/24 patient was seen and examined. No complaints. Patient is currently pending subacute rehab authorization. General: non toxic, no distress, appears at stated age Derm: warm, dry Head: atraumatic, normocephalic, symmetric Eyes: EOMI, no lid lag, anicteric sclera Mouth: no lip lesion, mucus membranes moist Cardiovascular: good distal perfusion in all 4 extremities Lungs: breathing comfortably Ext: no gross muscle atrophy, no edema, no contractures Neuro: no focal neuro deficits Psych: Alert, oriented, appropriate affect Based on my assessment of this patient, this patient meets a moderate complexity level of care. Generalized weakness: PT and OT consulted. Fall precautions. Case management on board. Severe protein calorie malnutrition: Dietitian consult. Add ensure TID to meals. Alcohol abuse: CIWA protocol with Ativan PO PRN. Subclinical hypothyroidism: Repeat TSH/FT4 in 6 weeks. Hypokalemia: Replace and re-check. Normocytic anemia: Advised of routine CA screening especially C-scope which patient declines. HypoCa: Pseudo when factoring in albumin of 2.2. Transaminitis likely due to EtOH abuse. Supratherapeutic INR: Obtain Liver US. Resolved: HypoMag, Leukocytosis CODE STATUS: FULL CODE DVT Prophylaxis: Eliquis GI Prophylaxis: Designated medical POA if patient is not able to make medical decisions for them selves: I have seen and evaluated the patient today. Discussed with the resident and agree with the residents subjective and objective as documented in the resident's note. The assessment and plan was discussed and changes outlined below. No complaints. Liver US has already been complete and reported. Plans for SNF today. Objective - Vital Signs Vital signs: Vital Signs Temp 97.7 F 03/24/24 07:05 Pulse 80 03/24/24 08:00 Resp 18 03/24/24 08:00 BP 95/70 03/24/24 07:05 Pulse Ox 93 L 03/24/24 07:05 FiO2 Intake & Output 03/23/24 03/24/24 03/24/24 18:59 06:59 18:59 Other: # Voids 0 6 1 # Bowel Movements 1 - Labs CBC & Chem 7: 03/23/24 04:25 03/23/24 04:25
--- NOTE | 2024-03-24 13:50 | P.DS ---
Providers Date of admission: 03/20/24 18:35 Discharge diagnoses: Generalized weakness Severe protein calorie malnutrition Alcohol abuse Subclinical hypothyroidism Hypokalemia Normocytic anemia HypoCa Transaminitis likely due to EtOH abuse Supratherapeutic INR Resolved: HypoMag, Leukocytosis Hospital course: Patient is a 64-year-old male with a past medical history of atrial fibrillation, hypertension, BPH, chronic alcohol abuse with complaint of generalized weakness. He says this weakness started yesterday while he was on the toilet and was unable to get up. He was brought in by his significant other with whom he lives with. He admitted that when he goes on longer walks that his calves start to burn. Denies any pain during the incident. He admits to drinking alcohol daily which is 2 L of vodka and orange juice.He also noted that he has diet is poor and has lost 50 pounds over the last 7 months. Denies numbness, tingling, black or bloody stools, chest pain, palpitations. Vitals in the ED were temperature 98.9, pulse rate 54, respiratory rate 16, blood pressure 90/58, O2 sat 95 on 2 L nasal cannula. Chest x-ray showed small left pleural effusion. EKG showed ectopic atrial rhythm. Labs: WBC 11.9, Hgb 11.6, MCV 99.3, sodium 137, potassium in ED was 3.0 and was given oral potassium to correct. Magnesium was 1.5 was given IV mag sulfate to correct. BUN 10, Cr 0.95, glucose 77. Total protein 4.2, albumin 2.2. AST 73, ALT 48. PT 15.3, INR 1.5, APTT 32.3. TSH 5.2. Troponin negative. Creatine kinase 256. Stool occult blood negative. He is being admitted for further workup on generalized weakness. Patient was admitted in room 468 and liver ultrasound was done and it shows probable underlying hepatic steatosis. He was put on CIWA protocol for chronic alcohol abuse and the transaminitis is likely because of alcohol abuse. Venous duplex negative for DVT. He was seen by dietitian for protein calorie maln utrition and was prescribed Ensure 3 times daily. He has atrial fibrillation and was put on Cardizem 80 mg, Eliquis 5 mg, sotalol 80 mg, Lipitor 40 mg. He was getting Flomax 0.4 mg for chronic BPH. PT OT evaluated the patient and recommended SNF which is now authorized. Follow up with PCP in 1-2 days. Repeat TSH and FT4 in 6 weeks. Patient seen at bedside today and is feeling good and excited about discharge. Vital signs are reviewed and stable General: non toxic, no distress, appears at stated age Derm: warm, dry Head: atraumatic, normocephalic, symmetric Eyes: EOMI, no lid lag, anicteric sclera Mouth: no lip lesion, mucus membranes moist Cardiovascular: good distal perfusion in all 4 extremities Lungs: breathing comfortably Ext: no gross muscle atrophy, no edema, no contractures Neuro: no focal neuro deficits Psych: Alert, oriented, appropriate affect Attending physician: Norma Brewer MD Primary care physician: Valeriy Mohamud MD Hospital Course: I have seen and evaluated the patient today. Discussed with the resident and agree with the residents subjective and objective as documented in the resident's note. The assessment and plan was discussed and outlined as below. Patient Condition at Discharge: Fair Plan - Discharge Summary Discharge Rx Participant: Yes New Discharge Prescriptions: New Thiamine [Vitamin B-1] 100 mg PO DAILY tab Multivitamins, Thera [Multivitamin (formulary)] 1 each PO DAILY tab Continue Tamsulosin [Flomax] 0.4 mg PO HS Sotalol [Betapace] 80 mg PO BID Atorvastatin [Lipitor] 40 mg PO DAILY dilTIAZem HCL [dilTIAZem HCL 24Hr ER (Xr)] 180 mg PO BID Folic Acid 1 mg PO DAILY Apixaban [Eliquis] 5 mg PO BID Discharge Medication List Apixaban [Eliquis] 5 mg PO BID 03/20/24 [History] Atorvastatin [Lipitor] 40 mg PO DAILY 03/20/24 [History] Folic Acid 1 mg PO DAILY 03/20/24 [History] Sotalol [Betapace] 80 mg PO BID 03/20/24 [History] Tamsulosin [Flomax] 0.4 mg PO HS 03/20/24 [History] dilTIAZem HCL [dilTIAZem HCL 24Hr ER (Xr)] 180 mg PO BID 03/20/24 [History] Multivitamins, Thera [Multivitamin (formulary)] 1 each PO DAILY tab 03/24/24 [Rx] Thiamine [Vitamin B-1] 100 mg PO DAILY tab 03/24/24 [Rx] Follow up Appointment(s)/Referral(s): Valeriy Mohamud MD [Primary Care Provider] - 1-2 days ([facility] please call for follow-up appointment.) Activity/Diet/Wound Care/Special Instructions: [facility] Discharge Disposition: TRANSFER TO SNF/ECF
[2024-03-24 14:43] VITALS: BP 114/74; PULSE 84; RESP 17
== END 2024-03-24 15:08 | DRG 640 ==
LOC: EC 12:32 → 4SSUR 16:24 → OBSVTOIN 18:35
PROVIDERS: ADMIT Family Medicine; ATTEND Family Medicine
PROC: HZ2ZZZZ Detoxification Services for Substance Abuse Treatment (ICD-10-PCS; principal; 2024-03-20)
DX: E87.6 Hypokalemia (principal); E43 Unspecified severe protein-calorie malnutrition; M62.82 Rhabdomyolysis; R53.1 Weakness; E03.8 Other specified hypothyroidism; F10.10 Alcohol abuse, uncomplicated; Z79.01 Long term (current) use of anticoagulants; R79.1 Abnormal coagulation profile; E83.51 Hypocalcemia; D53.9 Nutritional anemia, unspecified; D72.829 Elevated white blood cell count, unspecified; E83.42 Hypomagnesemia; I48.91 Unspecified atrial fibrillation; I10 Essential (primary) hypertension; K76.0 Fatty (change of) liver, not elsewhere classified; N40.0 Benign prostatic hyperplasia without lower urinary tract symptoms; Z79.899 Other long term (current) drug therapy; Z63.4 Disappearance and death of family member; Z71.41 Alcohol abuse counseling and surveillance of alcoholic
CPT/HCPCS: 36415; 71046; 76705; 80048; 80053; 81003; 82272; 82330; 82550; 82607; 82746; 83605; 83735; 84439; 84443; 84484; 85025; 85027; 85610; 85730; 87324; 87636; 93005; 96361; 96365; 99291